=== PATIENT | female | born 1950 ===

== ENCOUNTER 2019-02-24 15:17 | Emergency (ER) | payer MEDICARE, OTHER ==
[~2019-02-24] VITALS: Ht 160 cm; Wt 93.0 kg
[~2019-02-24 15:17] MED LIST: ALBIPROI INH; ALBU90OI; ALBU90OI INH; ALPR.5; ASPI325; ASPI325 PO; ASPI325EC PO; ASPI81CH PO; ATEN50; ATEN50 PO; ATOR40TA; AZIT250 PO; BREO ELLIPTA 21 EACH IH; CIPR250 PO; CLOP75 PO; FLUSAL2505 IH; FLUT.05NI; HYDACE5 PO; HYDCHL12.5 PO; ISOMON20 PO; LEVA1.25 IH; LISI5; LORA1 PO; MECL25 PO; METO50 PO; METO50ER PO; MONT10T PO; NITRSPRAY; NITRSPRAY SL; ONDA4ODT MM; PRED10 PO; PRED20 PO; ROSU10TA PO; Ranexa1000 MG PO; TIOT18 INH; XOPENEX PO
[2019-02-24 15:44] LABS: BASOPHILS ABSOLUTE AUTO 0.02 K/mm3 (0.00-0.23); BASOPHILS PERCENT AUTO 0 % (0-2); EOSINOPHILS ABSOLUTE AUTO 0.04 K/mm3 (0.00-0.68); EOSINOPHILS PERCENT AUTO 1 % (0-6); Hematocrit 39.6 % (33.0-51.0); Hemoglobin 12.6 g/dL (11.5-16.0); IMMATURE GRAN ABSOLUTE AUTO 0.01 K/mm3 (0.00-0.10); IMMATURE GRAN PERCENT AUTO 0 % (0-1); LYMPHOCYTES ABSOLUTE AUTO 2.36 K/mm3 (0.84-5.20); LYMPHOCYTES PERCENT AUTO 38 % (21-46); MONOCYTES ABSOLUTE AUTO 0.48 K/mm3 (0.16-1.47); MONOCYTES PERCENT AUTO 8 % (4-13); Mean Corpuscular HGB 29.7 pg (26.0-34.0); Mean Corpuscular HGB Conc 31.8 g/dL (31.5-36.5); Mean Corpuscular Volume 93 fL (80-100); Mean Platelet Volume 10.4 fL (9.1-12.4); NEUTROPHILS ABSOLUTE AUTO 3.24 K/mm3 (1.96-9.15); NEUTROPHILS PERCENT AUTO 53 % (41-73); Platelet Count 174 K/mm3 (150-400); RDW Coefficient Variation 13.2 % (11.7-14.2); RDW Standard Deviation 45.1 fL (35.1-46.3); Red Blood Cell Count 4.24 M/mm3 (3.80-5.20); White Blood Cell Count 6.15 K/mm3 (4.00-11.30)
[2019-02-24 16:04] LABS: Alanine Aminotransfer (ALT/SGP 24 U/L (12-78); Albumin/Globulin Ratio 0.8 (0.8-1.8); Alk Phos 59 U/L (50-136); Anion Gap 6 mmol/L (6-16); Aspartate Aminotrans (AST/SGOT 14 U/L (12-37); Bilirubin, Total 0.2 mg/dL (0.1-1.0); Blood Urea Nitrogen 12 mg/dL (8-24); Bun/Creatinine Ratio 15.2 (12.0-20.0); CO2, Blood 25 mmol/L (21-32); Calcium, Blood 8.6 mg/dL (8.5-10.1); Chloride, Blood 108 mmol/L (98-108); Creatinine, Blood 0.79 mg/dL (0.40-1.00); Globulin, Blood 3.9 g/dL (2.2-4.0); Glomerular Filtration Rate >60 (60-); Glucose, Blood 102 mg/dL (70-99); Potassium, Blood 4.1 mmol/L (3.5-5.5); Sodium, Blood 139 mmol/L (136-145); Total Protein, Blood 6.9 g/dL (6.4-8.2); Troponin I <0.015 ng/mL (0.000-0.040)
--- NOTE | 2019-02-24 19:44 | NUR ---
Patient gave permission for this student nurse to give care.
== END 2019-02-24 20:43 | disposition home or self-care (01) ==
LOC: ER 15:17
PROVIDERS: Physician Assistant
DX: H49.02 Third [oculomotor] nerve palsy, left eye (principal); R55 Syncope and collapse; Z88.5 Allergy status to narcotic agent; Z79.899 Other long term (current) drug therapy; Z79.82 Long term (current) use of aspirin; I25.10 Atherosclerotic heart disease of native coronary artery without angina pectoris; E78.5 Hyperlipidemia, unspecified; I25.2 Old myocardial infarction; Z87.891 Personal history of nicotine dependence
CPT/HCPCS: 36415; 70450; 70496; 70498; 71046; 80053; 84484; 85025; 93005; 93010; 99284-25; Q9967

== ENCOUNTER 2022-06-11 21:27 | Emergency (ER) | payer MEDICARE, OTHER ==
[~2022-06-11] VITALS: Ht 162.6 cm; Wt 95.2 kg
[2022-06-11 22:06] LABS: BASOPHILS ABSOLUTE AUTO 0.02 K/mm3 (0.00-0.23); BASOPHILS PERCENT AUTO 0 % (0-2); EOSINOPHILS ABSOLUTE AUTO 0.04 K/mm3 (0.00-0.68); EOSINOPHILS PERCENT AUTO 1 % (0-6); Hematocrit 41.3 % (33.0-51.0); Hemoglobin 13.7 g/dL (11.5-16.0); IMMATURE GRAN ABSOLUTE AUTO 0.01 K/mm3 (0.00-0.10); IMMATURE GRAN PERCENT AUTO 0 % (0-1); LYMPHOCYTES ABSOLUTE AUTO 2.63 K/mm3 (0.84-5.20); LYMPHOCYTES PERCENT AUTO 37 % (21-46); MONOCYTES ABSOLUTE AUTO 0.52 K/mm3 (0.16-1.47); MONOCYTES PERCENT AUTO 7 % (4-13); Mean Corpuscular HGB 30.6 pg (26.0-34.0); Mean Corpuscular HGB Conc 33.2 g/dL (31.5-36.5); Mean Corpuscular Volume 92 fL (80-100); Mean Platelet Volume 10.2 fL (9.1-12.4); NEUTROPHILS ABSOLUTE AUTO 3.81 K/mm3 (1.96-9.15); NEUTROPHILS PERCENT AUTO 54 % (41-73); Platelet Count 201 K/mm3 (150-400); RDW Coefficient Variation 13.2 % (11.7-14.2); RDW Standard Deviation 44.3 fL (35.1-46.3); Red Blood Cell Count 4.47 M/mm3 (3.80-5.20); White Blood Cell Count 7.03 K/mm3 (4.00-11.30)
[2022-06-11 22:23] LABS: Albumin, Blood 3.1 g/dL (3.4-5.0); Albumin/Globulin Ratio 0.7 (0.8-1.8); Bilirubin, Total 0.3 mg/dL (0.1-1.0); Bun/Creatinine Ratio 16.9 (12.0-20.0); Calcium, Blood 9.3 mg/dL (8.5-10.1); Creatinine, Blood 0.77 mg/dL (0.40-1.00); Globulin, Blood 4.5 g/dL (2.2-4.0); Potassium, Blood 3.6 mmol/L (3.5-5.5); Total Protein, Blood 7.6 g/dL (6.4-8.2)
[2022-06-11 22:30] VITALS: BP 132/68
[2022-06-11] MEDS ORDERED: METO100ER PO (22:48)
== END 2022-06-11 23:00 | disposition home or self-care (01) ==
LOC: ER 21:27
PROVIDERS: Emergency Medicine
DX: I48.91 Unspecified atrial fibrillation (principal); Z79.899 Other long term (current) drug therapy; Z79.82 Long term (current) use of aspirin; Z79.02 Long term (current) use of antithrombotics/antiplatelets
CPT/HCPCS: 36415; 80053; 83880; 84484; 85025; 93005; 93010; 96374; 99285-25; A9270

== ENCOUNTER 2022-11-07 12:36 | Day surgery (SDC) | payer MEDICARE, OTHER ==
[~2022-11-07] VITALS: Ht 160 cm; Wt 109.4 kg
[~2022-11-07 12:36] MED LIST changes: +METO100ER PO
[2022-11-07] MEDS ORDERED: FURO20 PO (13:08)
--- NOTE | 2022-11-07 14:06 | NUR ---
11/07/22 1406 Adele Diaz DELAY IN START TIME DUE TO LATE START IN PREVIOUS CASE DUE TO ANESTHESIA MD BEING IN CASES IN THE OR. BED IN LOW, LOCKED POSITION, CALL LIGHT IN REACH. WARM BLANKET APPLIED TO PT IN PREOP. PT UPDATED ON DELAY IN START TIME.
[2022-11-07 15:51] VITALS: BP 104/68
== END 2022-11-07 15:55 | disposition home or self-care (01) ==
LOC: ORSCSDS 12:36
PROVIDERS: Surgery
PROC: 0DBE8ZX Excision of Large Intestine, Via Natural or Artificial Opening Endoscopic, Diagnostic (ICD-10-PCS; principal; 2022-11-07 13:45)
DX: Z12.11 Encounter for screening for malignant neoplasm of colon (principal); D12.1 Benign neoplasm of appendix; I25.2 Old myocardial infarction; E66.01 Morbid (severe) obesity due to excess calories; Z68.41 Body mass index [BMI] 40.0-44.9, adult; J44.9 Chronic obstructive pulmonary disease, unspecified; K21.9 Gastro-esophageal reflux disease without esophagitis; G62.9 Polyneuropathy, unspecified; Z79.899 Other long term (current) drug therapy; Z79.82 Long term (current) use of aspirin
CPT/HCPCS: 88305; J2704; J7120

== ENCOUNTER 2023-03-27 11:39 | Day surgery (SDC) | payer MEDICARE, OTHER ==
[~2023-03-27] VITALS: Ht 160 cm; Wt 109.5 kg
[~2023-03-27 11:39] MED LIST changes: -ALBU90OI; -ASPI81CH PO; +ASPIR 8181 M1 PO; +BREO ELLIPTA 11 EAC1; +Balanced Salt Epinephrine Irrigation Solution 500 mL IR SCH; +Crestor20 MG PO; +FURO40 PO; +IPRAT-ALBUT 0.5-3 ML NEB; -ISOMON20 PO; +ISOSORBIDE MONO60 MG PO; +K-TAB ER20 ME1 PO; +Lidocaine HCl/Pf 1% 5 ML VIAL XX SCH; +Moxifloxacin HCL 0.5 MG/0.1 ML 0.4MLSYR RIGHTEYE SCH; +NS 500 ML IV ONE; +PHENYLEPHRINE\\TROPICAMIDE\\TETRACAINE OPHTHALMIC DILATING SOLN RIGHTEYE PRN; +Povidone-Iodine 450 DROP/30 ML Solution ONE; +Povidone-Iodine 450 DROP/30 ML Solution RIGHTEYE SCH
[2023-03-27] MEDS ORDERED: RANEXA1000 M1 PO (12:26)
--- NOTE | 2023-03-27 12:34 | NUR ---
03/27/23 1234 Deyvi Carreon CALL LIGHT WITHIN REACH. TETRACAINE IN RIGHT EYE AT 1227 AND PLEDGETT IN AT 1228
[2023-03-27] MEDS ORDERED: NS 500 ML IV ONE (12:35)
[2023-03-27] MEDS ORDERED: FentaNYL Citrate 50 MCG/ML 2 ML Injection ONE (12:40)
[2023-03-27] MEDS ORDERED: Midazolam HCl 1MG / ML 2ML Vial ONE (12:40)
[2023-03-27] MEDS ORDERED: Ondansetron HCl 2 MG / ML 2ML Vial ONE (13:04)
[2023-03-27] MEDS ORDERED: Tetracaine HCl 0.5% Opth Soln 15 ml XX ONE (13:09)
[2023-03-27] MEDS ORDERED: Acetaminophen 500 MG Tab ONE (13:42)
[2023-03-27 14:09] VITALS: BP 127/66
== END 2023-03-27 14:05 | disposition home or self-care (01) ==
LOC: ORSCSDS 11:39
PROVIDERS: Student in an Organized Health Care Education/Training Program
PROC: 08RJ3JZ Replacement of Right Lens with Synthetic Substitute, Percutaneous Approach (ICD-10-PCS; principal; 2023-03-27 13:00)
DX: H25.13 Age-related nuclear cataract, bilateral (principal); Z87.891 Personal history of nicotine dependence; F41.9 Anxiety disorder, unspecified; I25.10 Atherosclerotic heart disease of native coronary artery without angina pectoris; J44.9 Chronic obstructive pulmonary disease, unspecified; I25.2 Old myocardial infarction; I10 Essential (primary) hypertension; E78.5 Hyperlipidemia, unspecified; E66.9 Obesity, unspecified; Z68.41 Body mass index [BMI] 40.0-44.9, adult; Z79.899 Other long term (current) drug therapy; Z79.82 Long term (current) use of aspirin
CPT/HCPCS: A9270; J2250; J2405; J3010; J7040; V2632

== ENCOUNTER 2023-04-10 11:08 | Day surgery (SDC) | payer MEDICARE, OTHER ==
[~2023-04-10] VITALS: Ht 160 cm; Wt 109.5 kg
[~2023-04-10 11:08] MED LIST changes: +FentaNYL Citrate 50 MCG/ML 2 ML Injection ONE; +Midazolam HCl 1MG / ML 2ML Vial ONE; +Moxifloxacin HCL 0.5 MG/0.1 ML 0.4MLSYR LEFTEYE SCH; -Moxifloxacin HCL 0.5 MG/0.1 ML 0.4MLSYR RIGHTEYE SCH; +PHENYLEPHRINE\\TROPICAMIDE\\TETRACAINE OPHTHALMIC DILATING SOLN LEFTEYE PRN; -PHENYLEPHRINE\\TROPICAMIDE\\TETRACAINE OPHTHALMIC DILATING SOLN RIGHTEYE PRN; +Povidone-Iodine 450 DROP/30 ML Solution LEFTEYE SCH; -Povidone-Iodine 450 DROP/30 ML Solution RIGHTEYE SCH; +RANEXA1000 M1 PO
[2023-04-10] MEDS ORDERED: NS 500 ML IV ONE (11:32)
[2023-04-10] MEDS ORDERED: Tetracaine HCl 0.5% Opth Soln 15 ml LEFTEYE ONE (11:47)
[2023-04-10] MEDS ORDERED: Ondansetron HCl 2 MG / ML 2ML Vial ONE (11:51)
[2023-04-10 12:17] VITALS: BP 109/52
== END 2023-04-10 12:34 | disposition home or self-care (01) ==
LOC: ORSCSDS 11:08
PROVIDERS: Student in an Organized Health Care Education/Training Program
PROC: 08RK3JZ Replacement of Left Lens with Synthetic Substitute, Percutaneous Approach (ICD-10-PCS; principal; 2023-04-10 12:30)
DX: H25.12 Age-related nuclear cataract, left eye (principal); Z96.1 Presence of intraocular lens; Z87.891 Personal history of nicotine dependence; F41.9 Anxiety disorder, unspecified; J45.909 Unspecified asthma, uncomplicated; J44.9 Chronic obstructive pulmonary disease, unspecified; K21.9 Gastro-esophageal reflux disease without esophagitis; I25.10 Atherosclerotic heart disease of native coronary artery without angina pectoris; I25.2 Old myocardial infarction; I10 Essential (primary) hypertension; E78.5 Hyperlipidemia, unspecified; Z79.82 Long term (current) use of aspirin; Z79.899 Other long term (current) drug therapy
CPT/HCPCS: J2250; J2405; J3010; J7040; V2632

== ENCOUNTER → 2024-04-03 | Outpatient (CLI) | payer MEDICARE, OTHER ==
[~2024-04-03] MED LIST changes: -Balanced Salt Epinephrine Irrigation Solution 500 mL IR SCH; -FentaNYL Citrate 50 MCG/ML 2 ML Injection ONE; -Lidocaine HCl/Pf 1% 5 ML VIAL XX SCH; -Midazolam HCl 1MG / ML 2ML Vial ONE; -Moxifloxacin HCL 0.5 MG/0.1 ML 0.4MLSYR LEFTEYE SCH; -NS 500 ML IV ONE; -PHENYLEPHRINE\\TROPICAMIDE\\TETRACAINE OPHTHALMIC DILATING SOLN LEFTEYE PRN; -Povidone-Iodine 450 DROP/30 ML Solution LEFTEYE SCH; -Povidone-Iodine 450 DROP/30 ML Solution ONE
== END ==
LOC: LAB 18:51 → LAB SHORT 18:51
DX: R35.0 Frequency of micturition (principal); R30.0 Dysuria
CPT/HCPCS: 87086; 87147